=== PATIENT | female | born 1970 | race Caucasian/White ===

== ENCOUNTER 2018-10-25 12:35 | Day surgery (SDC) | payer OTHER, MEDICAID ==
[2018-10-25] MEDS ORDERED: LIDOCAINE 4% SOLUTION 50 ML BTL (13:58)
[2018-10-25] MEDS ORDERED: FENTAnyl 50 MCG/ML VIAL (15:02)
[2018-10-25] MEDS ORDERED: MIDAZOLAM 1 MG/ML 2 ML INJ ×2 (15:03)
== END 2018-10-25 15:42 | disposition home or self-care (01) ==
LOC: GIL 12:35
DX: Z12.11 Encounter for screening for malignant neoplasm of colon (principal); K29.50 Unspecified chronic gastritis without bleeding; D12.5 Benign neoplasm of sigmoid colon; D12.8 Benign neoplasm of rectum; K63.89 Other specified diseases of intestine; K29.80 Duodenitis without bleeding
CPT/HCPCS: 43239; 84703; 88305; 88312